=== PATIENT | female | born 1990 | race Caucasian/White ===

== ENCOUNTER 2021-10-26 01:48 | Emergency (ER) | payer OTHER, SELFPAY ==
[2021-10-26 01:42] VITALS: BP 116/79; PULSE 103; RESP 16; TEMP 37.3; O2SAT 98
--- NOTE | 2021-10-26 01:52 | ECG_ITS ---
Measurements Intervals [place] Rate: 107 P: 71 MD: 144 QRS: 44 QRSD: 90 T: 46 QT: 325 QTc: 434 Interpretive Statements SINUS TACHYCARDIA POSSIBLE LEFT ATRIAL ENLARGEMENT [-0.1mV P WAVE IN V1/V2] POSSIBLE RIGHT VENTRICULAR CONDUCTION DELAY [RSR (QR) IN V1/V2] NONSPECIFIC ST & T-WAVE ABNORMALITY ABNORMAL ECG NO PREVIOUS ECG AVAILABLE FOR COMPARISON Electronically Signed On 10-26-2021 12:22:27 CDT by Tian Umanzor M.D.
--- NOTE | 2021-10-26 02:28 | ED.GENADULT ---
HPI - General Adult General Chief complaint: Shortness of Breath/Dyspnea Stated complaint: SOB Time Seen by Provider: 10/26/21 01:55 History of Present Illness HPI narrative: Patient is a 31-year-old female who presents the emergency department with chief complaint of feeling anxious. The patient reports that she used crystal meth today for the first time and reports that afterwards she felt very anxious and had to smoke some marijuana to try to calm down. Patient then reports that she was detained by police and was feeling anxious and jittery after being arrested. Patient denies suicidal or homicidal ideation reports that she feels very twitchy at the moment. Related Data Home Medications Medication Instructions Recorded Confirmed heparin (bovine) 10,000 unit/mL unit 10/26/21 injection solution Allergies Allergy/AdvReac Type Severity Reaction Status Date / Time aspirin Allergy Hives Verified 10/26/21 01:54 Penicillins Allergy Hives Verified 10/26/21 01:54 adhesive tape AdvReac Redness of Verified 10/26/21 01:54 Skin Review of Systems Review of Systems: A 10 system review of systems was completed on the patient and is negative except for what is stated in the HPI. Nursing and ancillary documentation was reviewed. Exam Narrative: GENERAL: Well-appearing, well-nourished, and in no acute distress. HEAD: Normocephalic, atraumatic. EYES: PERRLA and EOMI. ENT: Nares clear, no rhinorrhea or epistaxis. Mucous membranes moist. NECK: Supple. CHEST: Clear to auscultation. No respiratory distress. HEART: Regular rate and rhythm. No murmur heard. Normal peripheral pulses. ABDOMEN: Soft, nontender, nondistended, normal active bowel sounds. EXTREMITIES: Normal range of motion. No edema. SKIN: Warm, dry, no rash. NEURO: No focal deficits. Alert and oriented x3. PSYCH: Normal mood and affect. Course Vital Signs Vital signs: Vital Signs Temperature 37.3 C 10/26/21 01:42 Pulse Rate 103 H 10/26/21 01:42 Respiratory Rate 16 10/26/21 01:42 Blood Pressure 116/79 10/26/21 01:42 Pulse Oximetry 98 10/26/21 01:42 Oxygen Delivery Room Air 10/26/21 01:42 Temperature 37.3 C 10/26/21 01:42 Pulse Rate 103 H 10/26/21 01:42 Respiratory Rate 16 10/26/21 01:42 Blood Pressure 116/79 10/26/21 01:42 Pulse Oximetry 98 10/26/21 01:42 Oxygen Delivery Room Air 10/26/21 01:51 Medical Decision Making Vital Signs Vital Signs: Vital Signs Temperature 37.3 C 10/26/21 01:42 Pulse Rate 103 H 10/26/21 01:42 Respiratory Rate 16 10/26/21 01:42 Blood Pressure 116/79 10/26/21 01:42 Pulse Oximetry 98 10/26/21 01:42 Oxygen Delivery Room Air 10/26/21 01:42 Temperature 37.3 C 10/26/21 01:42 Pulse Rate 103 H 10/26/21 01:42 Respiratory Rate 16 10/26/21 01:42 Blood Pressure 116/79 10/26/21 01:42 Pulse Oximetry 98 10/26/21 01:42 Oxygen Delivery Room Air 10/26/21 01:51 Discharge Plan Discharge Clinical Impression: Substance abuse Patient Disposition: Left Against Medical Advice Condition: Stable Prescriptions: No Action heparin (bovine) 10,000 unit/mL Solution Follow-up/Referrals: PHYSICIAN NOT ON STAFF,NONSTAFF [Primary Care Provider] - Time of Disposition: 02:33
== END 2021-10-26 02:31 | disposition left against medical advice (07) ==
PROVIDERS: Emergency Provider Emergency Medicine
DX: F15.10 Other stimulant abuse, uncomplicated (principal)
CPT/HCPCS: 93005; 99283